=== PATIENT | female | born 1955 | race African-American/Black ===

== ENCOUNTER 2021-12-10 14:24 | Emergency (ER) | payer OTHER ==
[2021-12-10 14:38] VITALS: BP 163/80; PULSE 99; RESP 18; TEMP 97.8; BMI 45.1
[2021-12-10] MEDS ORDERED: KETOROLAC TROMETHAMINE 30 MG/1 ML VIAL IM ONE (14:59)
[2021-12-10] MEDS ORDERED: KETOROLAC TROMETHAMINE 30 MG/1 ML VIAL ONE (15:14)
== END 2021-12-10 15:38 | disposition home or self-care (01) ==
LOC: JERFT 14:24
PROC: 3E023GC Introduction of Other Therapeutic Substance into Muscle, Percutaneous Approach (ICD-10-PCS; principal; 2021-12-10)
DX: M79.601 Pain in right arm (principal)
CPT/HCPCS: 71046-TC-FY; 73060-TC-RT-FY; 73070-TC-RT-FY; 99284-25